=== PATIENT | male | born 1970 | race Caucasian/White ===

== ENCOUNTER 2017-10-20 19:00 | Outpatient (CLI) | payer BC | END 2017-10-20 19:01 | disposition home or self-care (01) | LOC: SLEEPLAB 19:00 | PROVIDERS: ATTEND Family Medicine | DX: G47.33 Obstructive sleep apnea (adult) (pediatric) (principal); F51.9 Sleep disorder not due to a substance or known physiological condition, unspecified; G47.10 Hypersomnia, unspecified; R53.83 Other fatigue; R51 Headache; R06.83 Snoring | CPT/HCPCS: 95806 ==

== ENCOUNTER 2018-12-25 19:12 | Emergency (ER) | payer BC | END 2018-12-25 21:15 | disposition left against medical advice (07) | LOC: ERS 19:12 | DX: Z53.21 Procedure and treatment not carried out due to patient leaving prior to being seen by health care provider (principal) ==

== ENCOUNTER 2019-02-06 15:00 | Outpatient (CLI) | payer BC ==
--- NOTE | 2019-02-06 15:39 | ULT ---
Renal ultrasound: 02/06/2019 COMPARISON: 03/09/2017 HISTORY: Reevaluate left renal lesion TECHNIQUE: Multiplanar grayscale sonographic imaging of the kidneys and urinary bladder obtained. FINDINGS: Right kidney measures 11.3 x 5.6 x 5.2 cm. Left kidney measures 12.7 x 6.1 x 6.9 cm. No kiya al mass, hydronephrosis, or renal stone noted on the right. Urinary bladder appears grossly unremarkable. There is a left renal cyst measuring 2.2 x 2.6 x 2.4 cm, slightly enlarged when compared to the prior examination. No hydronephrosis or renal stone noted on the left at IMPRESSION: Left renal cyst.
== END 2019-02-06 15:01 | disposition home or self-care (01) ==
LOC: SCSULT 15:00
PROVIDERS: ATTEND Family Medicine
DX: N28.1 Cyst of kidney, acquired (principal)
CPT/HCPCS: 76770